=== PATIENT | male | born 1960 | race Caucasian/White ===

== ENCOUNTER → 2017-02-12 | Outpatient (CLI) | payer OTHER ==
[~2017-02-12] MED LIST: LEXAPRO10 MG PO
== END | disposition home or self-care (01) ==
LOC: CARD 08:25
DX: I31.3 Pericardial effusion (noninflammatory) (principal); I05.9 Rheumatic mitral valve disease, unspecified; Z98.890 Other specified postprocedural states

== ENCOUNTER → 2018-05-01 | Outpatient (CLI) | payer OTHER | END | disposition home or self-care (01) | LOC: CARD 11:08 | DX: I34.0 Nonrheumatic mitral (valve) insufficiency (principal); Z95.2 Presence of prosthetic heart valve ==

== ENCOUNTER → 2019-04-24 | Outpatient (CLI) | payer BC | END | disposition home or self-care (01) | LOC: CARD 11:50 | DX: Z98.890 Other specified postprocedural states (principal) ==

== ENCOUNTER 2020-01-24 13:44 | Emergency (ER) | payer BC ==
[~2020-01-24] VITALS: Ht 180.3 cm; Wt 102.1 kg
== END 2020-01-24 17:22 | disposition short-term general hospital (02) ==
LOC: ED 13:44
DX: S61.210A Laceration without foreign body of right index finger without damage to nail, initial encounter (principal); S69.91XA Unspecified injury of right wrist, hand and finger(s), initial encounter; Z79.899 Other long term (current) drug therapy; W20.8XXA Other cause of strike by thrown, projected or falling object, initial encounter; Y93.89 Activity, other specified; Y92.89 Other specified places as the place of occurrence of the external cause; Y99.8 Other external cause status

== ENCOUNTER → 2020-06-21 | Outpatient (CLI) | payer BC | END | disposition home or self-care (01) | LOC: CARD 08:12 | PROVIDERS: ATTEND Thoracic Surgery (Cardiothoracic Vascular Surgery) | DX: I07.1 Rheumatic tricuspid insufficiency (principal); Z98.890 Other specified postprocedural states ==

== ENCOUNTER → 2021-07-18 | Outpatient (CLI) | payer BC | END | disposition home or self-care (01) | LOC: CARD 10:30 | PROVIDERS: ATTEND Thoracic Surgery (Cardiothoracic Vascular Surgery) | DX: I51.7 Cardiomegaly (principal); Z98.890 Other specified postprocedural states ==

== ENCOUNTER → 2022-01-03 | Outpatient (CLI) | payer BC ==
[2022-01-03 10:18] LABS: INTERNATIONAL NORM RATIO 1.1 (2.0-3.5)
== END | disposition home or self-care (01) ==
LOC: LAB 09:19
PROVIDERS: ATTEND Internal Medicine
DX: I48.92 Unspecified atrial flutter (principal)

== ENCOUNTER → 2022-08-09 | Outpatient (CLI) | payer BC | END | disposition home or self-care (01) | LOC: RAD 09:00 | PROVIDERS: ATTEND Chiropractor | DX: M47.812 Spondylosis without myelopathy or radiculopathy, cervical region (principal); M43.06 Spondylolysis, lumbar region; M47.817 Spondylosis without myelopathy or radiculopathy, lumbosacral region; M48.061 Spinal stenosis, lumbar region without neurogenic claudication; M46.02 Spinal enthesopathy, cervical region ==